=== PATIENT | female | born 2005 | race Caucasian/White ===

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

== ENCOUNTER 2024-10-26 12:27 | Emergency (ER) | payer OTHER ==
[2024-10-26 12:37] VITALS: BP 105/71; PULSE 79; RESP 20; TEMP 98; BMI 32.8
[2024-10-26] MEDS ORDERED: DIPHTH,PERTUSS(ACELL),TET 0.5 ML DISP.SYRIN IM ONE (14:27)
[2024-10-26] MEDS: DIPHTH,PERTUSS(ACELL),TET 0.5 ML DISP.SYRIN IM ONE (14:32)
[2024-10-26 15:19] LABS: HIV INTERPRETATION NEGATIVE (NEGATIVE)
== END 2024-10-26 15:30 | disposition home or self-care (01) ==
LOC: JERFT 12:27
PROC: 0YQNXZZ Repair Left Foot, External Approach (ICD-10-PCS; principal; 2024-10-26)
DX: S91.312A Laceration without foreign body, left foot, initial encounter (principal); W26.8XXA Contact with other sharp object(s), not elsewhere classified, initial encounter
CPT/HCPCS: 12001-25; 36415; 73630-TC-LT; 86803; 87389; 90471; 90715; 99284-25